=== PATIENT | female | born 1955 | race Asian ===

== ENCOUNTER 2018-11-24 12:58 | Inpatient (IN) | payer OTHER ==
[~2018-11-24] VITALS: Wt 58.6 kg
[2018-11-24 13:56] LABS: COLLECTION METHOD CLEAN CATCH
[2018-11-24 13:57] LABS: BASO # 0.1 (0.0-0.2); BASO % 0.3 % (0.0-2.0); EOS % 0.1 % (0-4.0); GRAN # 15.4 (1.4-6.5); GRAN % 83.1 % (42.2-75.2); HEMOGLOBIN 10.4 g/dl (12.5-16.0); LYMPH # 1.5 (1.2-3.4); LYMPH % 7.9 % (20.0-51.0); MEAN CELL VOLUME 82 fl (80.0-100.0); MEAN CORPUSCULAR HEMOGLOBIN 28 pg (27.0-31.0); MEAN CORPUSCULAR HGB CONC 34 g/dl (33.0-37.0); MEAN PLATELET VOLUME 8.8 fl (7.4-10.4); MONO # 1.4 (0.1-0.6); MONO % 7.8 % (1.7-9.3); PLATELET COUNT 294 K/mm3 (130-400); RED BLOOD COUNT 3.78 M/mm3 (4.10-5.30); REDCELL DISTRIBUTION WIDTH-CV 12.5 % (11.5-14.5)
[2018-11-24 13:59] LABS: HEMATOCRIT 30.8 % (37.0-47.0)
[2018-11-24 14:07] LABS: ALBUMIN 3.6 gm/dL (3.5-5.0); BILIRUBIN,TOTAL 0.9 mg/dL (0.0-1.0); CALCIUM 9.4 mg/dL (8.4-10.2); CREATININE, serum 0.85 mg/dL (0.52-1.25); POTASSIUM 3.1 mmol/L (3.4-5.0); TOTAL PROTEIN 7.2 gm/dL (6.4-8.2)
[2018-11-24 14:09] LABS: MUCOUS Present /lpf; PH 6 (5-8); SQUAMOUS EPITHELIAL 0-2 /hpf; URINE APPEARANCE Hazy; URINE BACTERIA None Seen /hpf; URINE BILIRUBIN Negative (NEGATIVE); URINE BLOOD 1+ (NEGATIVE); URINE COLOR Yellow; URINE GLUCOSE Negative (NEGATIVE); URINE KETONE Negative (NEGATIVE); URINE LEUKOCYTE ESTERASE Trace (NEGATIVE); URINE NITRATE Negative (NEGATIVE); URINE PROTEIN(semi-quant) 1+ (NEGATIVE); URINE RBC 0-2 /hpf; URINE UROBILINOGEN Negative (NEGATIVE)
[2018-11-24] MEDS ORDERED: PRILOSEC 20MG20 MG PO (15:40)
[2018-11-24] MEDS ORDERED: BASAGLAR K100 UNIT/1 SQ (15:41)
--- NOTE | 2018-11-24 16:50 | NUR ---
RICCI rec'd a call from ER nurse about patient not having insurance because she is from [place] and is visiting her daughter. Patient was diagnosed with kidney cancer and the family is worried about paying. RICCI and SW student spoke with patients daughter about a financial counselor meeting with patient and daughter about completing a financial assistance application. RICCI left a message for Debra, financial counselor, to meet with patient.
--- NOTE | 2018-11-24 18:14 | NUR ---
Pt arrives to medical unit rm [id number] from ED via cart, alert, not responding verbally d/t language barrier. Pt's daughter at bedside for translation. Saline lock IV to right hand without s/s of complications. POC reviewed with pt and pt's family. Call light in reach.
[2018-11-24 18:18] VITALS: BP 128/73; PULSE 83; TEMP 98.3
[2018-11-24 19:54] VITALS: BP 94/48; PULSE 76; TEMP 98
--- NOTE | 2018-11-24 21:42 | NUR ---
Completed assessment and admission on PT with assistance of daughter; present in room during assessment. PT was able to assist with history and medication needs. HX of left side masectomy r/t breast cancer and DM1 with SS insulin dosed during hospital stay. PT primary language Slovak. Renal carcinoma admission DX with acute nausea and dietary changes noted during assessment. No significant skin concerns noted. LCTA, BS active x4, and continent of both bowel and bladder. Pending oncology consult 11/25 with case management assistance requested. No further concerns noted at time of exit; call light placed within reach and educated; Will continue to monitor. CDA
[2018-11-25 00:30] VITALS: BP 105/56; PULSE 58; TEMP 98
[2018-11-25 03:38] VITALS: BP 111/55; PULSE 82; TEMP 98
--- NOTE | 2018-11-25 04:38 | NUR ---
PT continued tolerate NS at 100mL/hr via IV to RT hand; PT resting well in bed with and daughter in room; PT tolerated insulin well; No further concerns or complaints of pain or discomfort throughout night; call light placed within reach; Will continue to treat and monitor as needed. CDA
[2018-11-25 06:21] LABS: MEAN CELL VOLUME 83 fl (80.0-100.0); MEAN CORPUSCULAR HGB CONC 32 g/dl (33.0-37.0); MEAN PLATELET VOLUME 8.8 fl (7.4-10.4); PLATELET COUNT 274 K/mm3 (130-400); RED BLOOD COUNT 3.37 M/mm3 (4.10-5.30); REDCELL DISTRIBUTION WIDTH-CV 12.6 % (11.5-14.5)
[2018-11-25 06:25] LABS: HEMATOCRIT 28.1 % (37.0-47.0); HEMOGLOBIN 9.1 g/dl (12.5-16.0); MEAN CORPUSCULAR HEMOGLOBIN 27 pg (27.0-31.0)
[2018-11-25 06:56] LABS: CALCIUM 8.5 mg/dL (8.4-10.2); CREATININE, serum 0.79 mg/dL (0.52-1.25); MAGNESIUM 2.1 mg/dL (1.6-2.3); POTASSIUM 3.5 mmol/L (3.4-5.0)
--- NOTE | 2018-11-25 06:57 | NUR ---
Report given to ANDRIY Kang. CDA
[2018-11-25 08:10] VITALS: BP 123/65; PULSE 102; TEMP 98.9
--- NOTE | 2018-11-25 08:30 | NUR ---
Assessment complete. Pt is alert and responsive to daughter who is working as a heavy equipment sales manager. Denies having any pain at this time. Breathing is even and unlabored on room air. RH infusing, remains free of complications, and is CDI. Pt's daughter and are at the bedside; all quesitons answered. Pt is resting quietly in the bed and she denies further needs. Call light within reach, will continue to monitor.
--- NOTE | 2018-11-25 09:04 | NUR ---
Initial visit; Patient's daughter enterpreted for parents. Well Service Floorperson offered spiritual care to which family declined but daughter thanked Well Service Floorperson for wishing them well.
[2018-11-25 12:11] VITALS: BP 111/62; PULSE 83; TEMP 98.6
--- NOTE | 2018-11-25 14:10 | NUR ---
RICCI and SW student met with the patient's daughter, Mario, to discuss discharge plan. The patient lives in [place] with her family, but has been visiting and staying with her daughter in [place]. The patient's daughter reports that the plan was for the patient and her to stay with her until the end of March. The patient does not have a PCP here and she gets her medications from [place]. The patient is self pay. Financial couseling has been consulted. Debra, financial counselor, plans to do a [employer] application with the patient. The patient plans to return back to her daughter's home upon discharge. SW to continue to follow.
[2018-11-25 15:55] VITALS: BP 110/57; PULSE 78; TEMP 98.2
--- NOTE | 2018-11-25 19:08 | NUR ---
Pt has been resting on and off throughout the day. She has had an intermittent pain to her ABD. Pain medication administered on DEC. Pt's daughter has remained at the bedside; all questions answered. Pt is sitting up in the bed resting quietly at this time and she denies further needs. Call light within reach. Report given to ANDRIY Maharaj.
[2018-11-25 20:24] VITALS: BP 97/68; PULSE 87; TEMP 98.3
--- NOTE | 2018-11-25 23:51 | NUR ---
Completed assessment and medication reconciliation with PT; PT reported cough discomfort, therefore PRN medication administered to assist coughing. Lung CTA with unproductive cough; LLQ abdominal pain reported decreased with Tylenol ES; R hand IV had NS running at 100mL/hr; warm blanket offered for comfort measures to encourage rest; Pt denied further needs or concerns at time of exit from room; call light placed within reach; will continue to monitor. CDA
[2018-11-26 00:15] VITALS: BP 101/54; PULSE 72; TEMP 97
--- NOTE | 2018-11-26 02:33 | NUR ---
PT resting well in bed; family (daughter and ) resting in room with PT; no further complaints or needs at this time; call light within reach; Will continue to monitor. CDA
[2018-11-26 04:39] VITALS: BP 132/76; PULSE 90; TEMP 97.3
--- NOTE | 2018-11-26 06:34 | NUR ---
Hypoglycemic episode in AM of 64; offered juice and PB with crackers; Recheck showed in improvement of 116. Will continue to monitor. CDA
--- NOTE | 2018-11-26 07:08 | NUR ---
Report given to ANDRIY Kang. CDA
[2018-11-26 07:13] LABS: BASO % 0.3 % (0.0-2.0); EOS # 0.1 (0.0-0.7); EOS % 0.8 % (0-4.0); GRAN # 9.8 (1.4-6.5); GRAN % 82.6 % (42.2-75.2); LYMPH % 8.4 % (20.0-51.0); MEAN CELL VOLUME 82 fl (80.0-100.0); MEAN CORPUSCULAR HGB CONC 33 g/dl (33.0-37.0); MONO # 0.9 (0.1-0.6); MONO % 7.6 % (1.7-9.3); PLATELET COUNT 254 K/mm3 (130-400); RED BLOOD COUNT 3.57 M/mm3 (4.10-5.30); REDCELL DISTRIBUTION WIDTH-CV 12.7 % (11.5-14.5)
[2018-11-26 07:16] LABS: HEMATOCRIT 29.3 % (37.0-47.0); HEMOGLOBIN 9.6 g/dl (12.5-16.0); MEAN CORPUSCULAR HEMOGLOBIN 27 pg (27.0-31.0)
[2018-11-26 07:22] LABS: CALCIUM 8.4 mg/dL (8.4-10.2); CREATININE, serum 0.75 mg/dL (0.52-1.25); POTASSIUM 3.2 mmol/L (3.4-5.0)
[2018-11-26 08:05] VITALS: BP 129/81; PULSE 109; TEMP 99.4
--- NOTE | 2018-11-26 08:10 | NUR ---
Assessment complete. Pt is alert and responds to daughter appropriately. Breathing is even and unlabored on room air. RH infusing, remains free of complications, and is CDI. Pt is resting quietly in the bed at this time and she appears content. Pt's daughter states she will be leaving this morning and will return this afternoon. Call light within reach, will continue to monitor.
[2018-11-26] MEDS ORDERED: TYLENOL 500MG500 MG PO (10:08)
[2018-11-26] MEDS ORDERED: OMNICEF 300MG300 MG PO (10:08)
[2018-11-26] MEDS ORDERED: ZOFRAN ODT4 MG PO (10:09)
--- NOTE | 2018-11-26 12:00 | NUR ---
Pt discharged at this time. RH IV discontinued with the catheter tip intact. Education provided and all questions were answered. Pt and her daughter both verbalize understanding. Pt escourted out ambulatory with tech. [place]
== END 2018-11-26 12:05 | disposition home or self-care (01) | DRG 687 ==
LOC: COL.ER 12:58 → MEDICAL 16:01
PROVIDERS: Emergency Medicine; Physician Assistant
DX: D41.01 Neoplasm of uncertain behavior of right kidney (principal); N39.0 Urinary tract infection, site not specified; Z85.3 Personal history of malignant neoplasm of breast; E11.9 Type 2 diabetes mellitus without complications; Z79.4 Long term (current) use of insulin; E87.6 Hypokalemia
CPT/HCPCS: 99223-AI; 99232-AI; 99239; A4216; J0696; J1815; J2405; J7030; Q9967